=== PATIENT | male | born 1995 | race Caucasian/White ===

== ENCOUNTER 2025-03-16 08:57 | Emergency (ER) | payer BC, SELFPAY ==
[2025-03-16 09:00] VITALS: BP 154/97
[2025-03-16 09:22] VITALS: BMI 31.0
--- NOTE | 2025-03-16 09:22 | ED.GENMED ---
History of Present Illness
General
Chief Complaint: Chest Pain
Time Seen by Provider: 03/16/25 09:06
History of Present Illness
History of Present Illness:
29-year-old male with history of hypertension not currently on medication presents to the emergency department for evaluation of left lower chest pain beginning yesterday but worsening today. Describes a pleuritic chest pain that is worse when
supine or when on the left lateral position as well as when prone. Pain does not radiate. Saw his primary care physician yesterday who prescribed him lorazepam but states this did not help. No recent fevers or chills. Denies any URI symptoms or
coughing. No recent illnesses in the past 4 to 8 weeks and no recent vaccinations in the past 4 to 8 weeks. Denies illicit substance use
Review of Systems
Review of Systems
Allergies reviewed?: Yes
All Other Systems: ROS reviewed and negative except as documented in HPI and ROS
Phy Exam
Physical Exam
Physical Exam:
GEN: Well appearing, NAD, WDWN
HEENT: Oral mucosa moist, no scleral icterus
Cardiac: Regular rate and rhythm, no murmurs or rubs
Lung: No respiratory distress, no tachypnea, lungs clear to auscultation bilaterally
MSK: No gross deformity or injuries
Skin: Good color, no pallor or jaundice, no rashes
Neuro: AO x3, moves all extremities freely
Psych: Calm, cooperative
Scores
Heart Score for Chest Pain Patients
STEMI patient?: No
History: Slightly or Non-Suspicious
ECG: Normal
Age: </= 45 years
Risk Factors: No Risk Factors
Troponin: </= Normal Limit
Heart Score for Chest Pain Patients: 0
Heart Score Risk: 2.5% MACE over next 6 weeks
Course
Orders/Labs/Results
Orders:
Orders
03/16/25 08:58
ECG [Electrocardiogram (*1)] Urgent
Reason for Study: Abdominal Pain
EKG- Treatment ONCE
03/16/25 09:22
Ketorolac [Toradol] 15 mg IV NOW STA
CR Chest - 2 Views Urgent
Comment:
Reason For Exam: chest pain
03/16/25 09:26
CRP [C-Reactive Protein] Urgent
Complete Blood Count/With Diff Urgent
Comprehensive Metabolic Panel Urgent
ESR [Erythrocyte Sed Rate] Urgent
03/16/25 09:37
Troponin I Urgent
Abnormal Lab Results
03/16/25
09:26
Absolute Neuts (auto) 6.7 H 10^3/uL
(1.4-6.5)
Absolute Monos (auto) 0.9 H 10^3/uL
(0.1-0.6)
Lymphocytes % 13.9 L %
(20.5-51.1)
Monocytes % 9.4 H %
(1.7-9.3)
Glucose 103 H mg/dl
(70-99)
03/16/25 09:26
03/16/25 09:26
Vital Signs
Initial and Last Documented VS:
Initial Vital Signs
Temp Pulse Resp BP Pulse Ox
97.7 F 80 18 154/97 100
03/16/25 09:00 03/16/25 09:00 03/16/25 09:00 03/16/25 09:00 03/16/25 09:00
Last Documented Vital Signs
Temp Pulse Resp BP Pulse Ox
97.7 F 63 14 120/79 98
03/16/25 09:00 03/16/25 10:00 03/16/25 10:00 03/16/25 10:01 03/16/25 10:00
MDM/Problems Addressed
MDM/Problems Addressed:
After initial evaluation considered pericarditis is a potential diagnosis given the positional and pleuritic nature however inflammatory markers are negative. Additionally he has no recent risk factors such as illness or immunization that would
have caused this. His symptoms did improve with NSAIDs, otherwise workup is reassuring thus will recommend a short course of NSAIDs for supportive relief. Meets PE rule out criteria thus no D-dimer is indicated
Comment
Comment:
EKG independently interpreted by me shows normal sinus rhythm at a rate of [address] changes concerning for ischemia, incomplete right bundle branch block is noted
*Pulse Oximetry
SaO2: 100
Oxygen Mode of Delivery: Room air
Patient hypoxic: no
*Critical Care Note
Total Time (30-74mins, 75-104mins- exclusive of procedures): Not Applicable
ED Attending Note
-
Portions of this chart may have been created with voice recognition software.� Occasional wrong word or��sound alike� substitutions may have occurred due to the inherent limitations of voice recognition software.
Discharge Plan
Departure
Patient Disposition: Home (Routine Discharge)
Date of Disposition: 03/16/25
Time of Disposition: 10:36
Patient with high blood pressure during this ER visit?: No
Discharge Problem:
Atypical chest pain
Instructions: Chest Pain That Is Not Caused by the Heart (DC)
Prescriptions:
New
diclofenac sodium 75 mg tablet,delayed release (DR/EC)
75 mg PO BID Qty: 20 0RF
Referrals:
Parmjit Whitney DO [Family Provider, Family Practice]
Interventions
Interventions:
*Risk Screen - Suicide Last Done: 03/16/25 09:22
*General Assessment Last Done: 03/16/25 09:22
*Neglect/Abuse Screening Last Done: 03/16/25 09:22
ED- Cardiac Assessment Last Done: 03/16/25 09:22
Discharge Date and Time
Print Language: SERBIAN
[2025-03-16] MEDS: TORADOL 15 MG IV (09:29)
[2025-03-16 09:37] LABS: % Basophils 0.2 % (0-2); % Eosinophils 1.8 % (0-6); % Immature Granulocytes 0.2 % (0-0.5); % Lymphocytes 13.9 % (20.5-51.1); % Monocytes 9.4 % (1.7-9.3); % Neutrophils 74.5 % (42.2-75.2); Absolute Eosinophils 0.2 10^3/uL (0-0.7); Absolute Lymphocytes 1.3 10^3/uL (1.2-3.4); Absolute Monocytes 0.9 10^3/uL (0.1-0.6); Absolute Neutrophils 6.7 10^3/uL (1.4-6.5); Hematocrit 44.4 % (39.0-52.0); Hemoglobin 15.8 g/dL (13.0-18.0); Mean Corp Hgb Conc. 35.6 g/dL (33.0-37.0); Mean Corpuscular Hgb 29.3 pg (27.0-31.0); Mean Corpuscular Volume 82.4 fL (80.0-94.0); Mean Platelet Volume 10.4 fL (7.4-10.4); Nucleated Red Blood Cells % 0 % (-); Platelet Count 208 10^3/uL (130-400); Red Blood Cell Count 5.39 10^6/uL (4.70-6.10); Red Cell Dist. Width 12.4 % (11.5-14.5)
[2025-03-16 09:50] LABS: ALT (SGPT) 21 U/L (0-50); AST (SGOT) 21 U/L (17-59); Alkaline Phosphatase 56 U/L (38-126); Blood Urea Nitrogen 19 mg/dl (9-20); Calcium 9.5 mg/dl (8.4-10.2); Carbon Dioxide 24 mmol/L (22-30); Chloride 107 mmol/L (98-107); Estimated Creatinine Clearance 114 ml/min; Glucose 103 mg/dl (70-99); Sodium 139 mmol/L (135-145); Total Bilirubin 0.6 mg/dl (0.2-1.3); Total Protein 7.6 g/dl (6.3-8.2); eGFR > 60.00
[2025-03-16 09:52] LABS: C-Reactive Protein < 5.00 mg/L (0.0-10.00)
[2025-03-16 10:01] VITALS: BP 120/79
[2025-03-16 10:09] LABS: Troponin I < 0.012 ng/ml
[2025-03-16 11:28] LABS: Erythrocyte Sed Rate 2 mm/hour (0-20)
== END 2025-03-16 10:55 | disposition home or self-care (01) ==
LOC: EMR 08:57
PROVIDERS: Physician Assistant; EMERGENCY PHYSICIAN Emergency Medicine; FAMILY PHYSICIAN Family Medicine
DX: R07.89 Other chest pain (principal); I10 Essential (primary) hypertension; I45.10 Unspecified right bundle-branch block
CPT/HCPCS: 99285; 96374; 71046; 80053; 84484; 85025; 85652; 86140; 93005